=== PATIENT | female | born 1990 | race Caucasian/White ===

== ENCOUNTER → 2023-02-28 20:13 | Outpatient (ROUT) | payer OTHER, SELFPAY ==
[2023-02-28 20:48] LABS: Cholesterol 270 mg/dL (140-199); HDL Cholesterol 82 mg/dL (40-60); LDL Cholesterol Calculated 158 mg/dL (<100); Triglycerides 152 mg/dL (35-150)
[2023-02-28 21:04] LABS: Free T4, Direct Thyroxine 1.21 ng/dL (0.78-2.19)
== END ==
PROVIDERS: PCP Family Medicine; Visit Provider Family Medicine
DX: E05.90 Thyrotoxicosis, unspecified without thyrotoxic crisis or storm (principal); E78.1 Pure hyperglyceridemia
CPT/HCPCS: 36415; 80061; 84439; 84443

== ENCOUNTER → 2024-04-03 12:28 | Outpatient (CLI) | payer OTHER, SELFPAY ==
[2024-04-03 13:10] LABS: Free T4, Direct Thyroxine 1.19 ng/dL (0.78-2.19)
[2024-04-03 13:15] LABS: Alanine Aminotransferase 31 IU/L (<35); Albumin 4.8 g/dL (3.5-5.0); Albumin Globulin Ratio 1.8 (1.0-2.8); Alkaline Phosphatase 73 U/L (38-126); Aspartate Aminotransferase 48 IU/L (14-36); BUN Creatinine Ratio 8.7 (6-22); Bilirubin Total 0.7 mg/dL (0.2-1.3); Blood Urea Nitrogen 6 mg/dL (7-17); Calcium 9.2 mg/dL (8.4-10.2); Carbon Dioxide 24 mmol/L (22-32); Chloride 105 mmol/L (98-107); Cholesterol 199 mg/dL (140-199); Estimated Glomerular Filt Rate > 60 mL/min (>60); Globulin 2.7 g/dL (1.7-4.1); Glucose 89 mg/dL (70-100); HDL Cholesterol 60 mg/dL (40-60); HEMOLYSIS 18 (0-50); LDL Cholesterol Calculated 103 mg/dL (<100); Sodium 140 mmol/L (137-145); Total Protein 7.5 g/dL (6.3-8.2); Triglycerides 178 mg/dL (35-150)
[2024-04-03 13:23] LABS: Thyroid Stimulating Hormone 4.23 uIU/mL (0.47-4.68)
== END ==
PROVIDERS: PCP Family Medicine; Referring Provider Family Medicine; Visit Provider Family Medicine
DX: E78.1 Pure hyperglyceridemia (principal); E05.90 Thyrotoxicosis, unspecified without thyrotoxic crisis or storm
CPT/HCPCS: 36415; 80053; 80061; 84439; 84443

== ENCOUNTER → 2024-11-30 07:47 | Outpatient (ROUT) | payer OTHER, SELFPAY ==
[2024-11-30 08:29] LABS: Alanine Aminotransferase 27 IU/L (<35); Albumin 4.6 g/dL (3.5-5.0); Albumin Globulin Ratio 1.5 (1.0-2.8); Alkaline Phosphatase 57 U/L (38-126); Aspartate Aminotransferase 38 IU/L (14-36); BUN Creatinine Ratio 12.3 (6-22); Bilirubin Total 0.3 mg/dL (0.2-1.3); Blood Urea Nitrogen 9 mg/dL (7-17); Calcium 9.7 mg/dL (8.4-10.2); Carbon Dioxide 25 mmol/L (22-32); Chloride 105 mmol/L (98-107); Cholesterol 235 mg/dL (140-199); Estimated Glomerular Filt Rate > 60 mL/min (>60); Globulin 3.1 g/dL (1.7-4.1); Glucose 83 mg/dL (70-100); HDL Cholesterol 63 mg/dL (40-60); HEMOLYSIS < 15 (0-50); LDL Cholesterol Calculated 117 mg/dL (<100); Potassium 3.6 mmol/L (3.4-5.1); Sodium 139 mmol/L (137-145); Total Protein 7.7 g/dL (6.3-8.2); Triglycerides 275 mg/dL (35-150)
[2024-11-30 08:46] LABS: Free T4, Direct Thyroxine 0.88 ng/dL (0.78-2.19)
[2024-11-30 09:00] LABS: Thyroid Stimulating Hormone 8.06 uIU/mL (0.47-4.68)
[2024-12-03 11:08] LABS: Calcium 9.8 mg/dL (8.7-10.2); Parathyroid Hormone, Intact 15 pg/mL (15-65)
== END ==
PROVIDERS: PCP Family Medicine; Visit Provider Family Medicine
DX: E03.9 Hypothyroidism, unspecified (principal); E78.1 Pure hyperglyceridemia; E04.1 Nontoxic single thyroid nodule
CPT/HCPCS: 80053; 80061; 82310; 83970; 84439; 84443

== ENCOUNTER → 2025-01-14 11:22 | Outpatient (CLI) | payer OTHER, SELFPAY | PROVIDERS: PCP Family Medicine; Referring Provider Family Medicine; Visit Provider Family Medicine | DX: R06.2 Wheezing (principal); J30.2 Other seasonal allergic rhinitis; Z91.09 Other allergy status, other than to drugs and biological substances; J30.89 Other allergic rhinitis | CPT/HCPCS: 94060; 94726; 94729 ==

== ENCOUNTER → 2025-01-31 13:17 | Outpatient (CLI) | payer OTHER, SELFPAY ==
[2025-01-31 15:04] LABS: Lipase 58 U/L (23-300)
[2025-01-31 15:23] LABS: Free T4, Direct Thyroxine 0.99 ng/dL (0.78-2.19)
[2025-01-31 15:37] LABS: Thyroid Stimulating Hormone 6.18 uIU/mL (0.47-4.68)
== END ==
PROVIDERS: PCP Family Medicine; Referring Provider Family Medicine; Visit Provider Family Medicine
DX: E03.9 Hypothyroidism, unspecified (principal); E04.1 Nontoxic single thyroid nodule; E78.1 Pure hyperglyceridemia; R19.7 Diarrhea, unspecified
CPT/HCPCS: 36415; 83690; 84439; 84443

== ENCOUNTER → 2025-10-14 07:25 | Outpatient (CLI) | payer OTHER, SELFPAY ==
[2025-10-14 09:58] LABS: Free T4, Direct Thyroxine 1.08 ng/dL (0.78-2.19)
[2025-10-14 10:12] LABS: Thyroid Stimulating Hormone 21.5 uIU/mL (0.47-4.68)
== END ==
PROVIDERS: PCP Family Medicine; Referring Provider Family Medicine; Visit Provider Family Medicine
DX: E03.9 Hypothyroidism, unspecified (principal)
CPT/HCPCS: 36415; 84439; 84443